=== PATIENT | female | born 1965 | race Caucasian/White ===

== ENCOUNTER 2020-04-22 00:05 | Inpatient (IN) ==
[2020-04-22 01:19] LABS: Urine Appearance Clear; Urine Bilirubin Negative (Negative); Urine Blood Negative (Negative); Urine Color Straw; Urine Glucose Negative (Negative); Urine Ketones Trace (Negative); Urine Nitrite Negative (Negative); Urine Protein Negative (Negative); Urine Specific Gravity 1.009 (1.010-1.030); Urine Urobilinogen Negative (Negative)
[2020-04-22 01:39] LABS: Urine Benzodiazepine Screen None Detected (None Detect); Urine Opiates Screen None Detected (None Detect)
[2020-04-22 02:24] LABS: ABS Basophils 0.1 10^3/ul (0-0.2); ABS Eosinophils 0.2 10^3/ul (0-0.6); ABS Lymphocytes 2.8 10^3/ul (1.0-4.8); ABS Monocytes 0.5 10^3/ul (0-0.8); Eosinophil % 1.9 %; Hematocrit 36 % (35-47); Hemoglobin 12.3 g/dL (12.0-16.0); Lymphocyte % 28.9 %; Mean Corpuscular HGB Conc 34 g/dL (31-36); Mean Corpuscular Hemoglobin 25 pg (27-31); Mean Corpuscular Volume 75 fL (80-97); Mean Platelet Volume 7.3 fL (7.4-10.4); Platelet Count 236 10^3/uL (150-450); Red Blood Count 4.83 10^6 /uL (3.70-4.87); Red Cell Distribution Width 16 % (10-15); White Blood Count 9.7 10^3/uL (3.5-10.8)
[2020-04-22 02:41] LABS: ALT 51 U/L (7-52); AST 34 U/L (13-39); Albumin 4.4 g/dL (3.2-5.2); Albumin/Globulin Ratio 1.9 (1-3); Alkaline Phosphatase 93 U/L (34-104); Anion Gap 9 mmol/L (2-11); BUN/Creatinine Ratio 22.2 (8-20); Blood Urea Nitrogen 16 mg/dL (6-24); CO2 Carbon Dioxide 29 mmol/L (22-32); Calcium 9.2 mg/dL (8.6-10.3); Chloride 100 mmol/L (101-111); EGFR African American 102.5 (>60); EGFR Non-African American 84.7 (>60); Globulin 2.3 g/dL (2-4); Glucose 198 mg/dL (70-100); Potassium 3.7 mmol/L (3.5-5.0); Sodium 138 mmol/L (135-145); Total Protein 6.7 g/dL (6.4-8.9)
[2020-04-22 03:09] LABS: Acetaminophen < 15 mcg/mL; Alcohol, S < 10 mg/dL (<10); Salicylate < 2.50 mg/dL (<30)
[2020-04-22 03:24] LABS: TSH (Thyroid Stimulating Horm) 0.14 mcIU/mL (0.34-5.60)
[2020-04-22] MEDS ORDERED: Al Hydrox/Mg Hydrox/Simet LIQ 30 ML UDC PO PRN (11:12)
[2020-04-22 12:34] LABS: Free T4 1.43 ng/dL (0.61-1.12)
[2020-04-22] MEDS: CMCS:OMEGA-3 FATTY ACID 1000 mg(NF) PO SCH (20:51)
[2020-04-22] MEDS ORDERED: Magnesium CITRATE LIQ 300 ML BTL PO SCH (21:00)
[2020-04-22] MEDS ORDERED: MAGNESIUM CITRATE PO SCH (21:00)
[2020-04-23] MEDS: Multivitamins/Minerals TAB PO SCH (08:20)
[2020-04-23] MEDS: Vitamin THERAPEUTIC TAB PO SCH (08:20)
[2020-04-23] MEDS: CMCS:OMEGA-3 FATTY ACID 1000 mg(NF) PO SCH ×2 (08:21→21:16)
[2020-04-23] MEDS: CRANBERRY SUPPLEMENT PO SCH (08:21)
[2020-04-23] MEDS ORDERED: [UNRECOGNIZED DRUG - OTHER] PO SCH (11:42)
[2020-04-24] MEDS: CRANBERRY SUPPLEMENT PO SCH (08:57)
[2020-04-24] MEDS: Multivitamins/Minerals TAB PO SCH (08:58)
[2020-04-24] MEDS: CMCS:OMEGA-3 FATTY ACID 1000 mg(NF) PO SCH ×2 (09:06→20:34)
[2020-04-24] MEDS: Vitamin THERAPEUTIC TAB PO SCH (09:07)
[2020-04-24] MEDS ORDERED: DULAGLUTIDE 1.5 MG/0.5 ML SUBCUT ONE (14:00)
[2020-04-25] MEDS: Vitamin THERAPEUTIC TAB PO SCH (08:02)
[2020-04-25] MEDS: Multivitamins/Minerals TAB PO SCH (08:02)
[2020-04-25] MEDS: CMCS:OMEGA-3 FATTY ACID 1000 mg(NF) PO SCH ×2 (08:03→20:34)
[2020-04-25] MEDS: CRANBERRY SUPPLEMENT PO SCH (08:04)
[2020-04-26] MEDS: CRANBERRY SUPPLEMENT PO SCH (07:30)
[2020-04-26] MEDS: Vitamin THERAPEUTIC TAB PO SCH (07:31)
[2020-04-26] MEDS: CMCS:OMEGA-3 FATTY ACID 1000 mg(NF) PO SCH ×2 (07:31→20:14)
[2020-04-26] MEDS: Multivitamins/Minerals TAB PO SCH (07:31)
[2020-04-27] MEDS: CRANBERRY SUPPLEMENT PO SCH (08:30)
[2020-04-27] MEDS: CMCS:OMEGA-3 FATTY ACID 1000 mg(NF) PO SCH (08:32)
[2020-04-27] MEDS: Multivitamins/Minerals TAB PO SCH (08:33)
[2020-04-27] MEDS: Vitamin THERAPEUTIC TAB PO SCH (08:34)
[2020-04-27 10:10] VITALS: BP 123/65
== END 2020-04-27 11:51 | disposition home or self-care (01) | DRG 754 ==
LOC: ED 00:05 → BSU 10:21
PROVIDERS: ADMIT Psychiatry & Neurology Psychiatry; ATTEND Psychiatry & Neurology Psychiatry

== ENCOUNTER 2020-10-14 15:16 | Inpatient (IN) ==
[2020-10-14 16:26] LABS: ABS Basophils 0.1 10^3/ul (0-0.2); ABS Eosinophils 0.1 10^3/ul (0-0.6); ABS Monocytes 0.4 10^3/ul (0-0.8); ABS Neutrophils 6.1 10^3/ul (1.5-7.7); Eosinophil % 1.7 %; Hematocrit 34 % (35-47); Hemoglobin 11.6 g/dL (12.0-16.0); Lymphocyte % 22.8 %; Mean Corpuscular HGB Conc 35 g/dL (31-36); Mean Corpuscular Hemoglobin 26 pg (27-31); Mean Corpuscular Volume 76 fL (80-97); Mean Platelet Volume 7.2 fL (7.4-10.4); Platelet Count 226 10^3/uL (150-450); Red Blood Count 4.41 10^6 /uL (3.70-4.87); Red Cell Distribution Width 15 % (10-15); White Blood Count 8.7 10^3/uL (3.5-10.8)
[2020-10-14 17:06] LABS: TSH Ultra Thyroid Stim Horm 0.38 mcIU/mL (0.34-5.60)
[2020-10-14 17:09] LABS: Urine Appearance Clear; Urine Bilirubin Negative (Negative); Urine Blood Negative (Negative); Urine Color Yellow; Urine Glucose 1+(50 mg/dL) (Negative); Urine Ketones Negative (Negative); Urine Nitrite Negative (Negative); Urine Protein Negative (Negative); Urine Specific Gravity 1.015 (1.010-1.030); Urine Urobilinogen Negative (Negative)
[2020-10-14 17:17] LABS: ALT 22 U/L (7-52); AST 18 U/L (13-39); Albumin 4.6 g/dL (3.2-5.2); Albumin/Globulin Ratio 2.2 (1-3); Alkaline Phosphatase 85 U/L (34-104); Anion Gap 11 mmol/L (2-11); BUN/Creatinine Ratio 18.8 (8-20); Blood Urea Nitrogen 13 mg/dL (6-24); CO2 Carbon Dioxide 26 mmol/L (22-32); Calcium 9.4 mg/dL (8.6-10.3); Chloride 102 mmol/L (101-111); EGFR African American 107.7 (>60); Globulin 2.1 g/dL (2-4); Glucose 243 mg/dL (70-100); Sodium 139 mmol/L (135-145); Total Protein 6.7 g/dL (6.4-8.9)
[2020-10-14 17:30] LABS: Acetaminophen < 15 mcg/mL; Alcohol, S < 10 mg/dL (<10); Salicylate < 2.50 mg/dL (<30)
[2020-10-14 17:47] LABS: Urine Benzodiazepine Screen None Detected (None Detect); Urine Cannabinoids Screen None Detected (None Detect); Urine Opiates Screen None Detected (None Detect)
[2020-10-14] MEDS ORDERED: Al Hydrox/Mg Hydrox/Simet LIQ 30 ML UDC PO PRN (20:29)
[2020-10-15] MEDS: Vitamin THERAPEUTIC TAB PO SCH (09:04)
[2020-10-15] MEDS ORDERED: OZEMPIC SUBCUT SCH (14:00)
[2020-10-15] MEDS ORDERED: OZEMPIC 2 MG/1.5 ML SUBCUT SCH (14:00)
[2020-10-15] MEDS ORDERED: Dextrose 50% Syringe 50 ml 25 GM/50 ML SYRINGE IV PUSH PRN (16:38)
[2020-10-15] MEDS ORDERED: CMCS - OMEGA-3 FATTY ACID 1000 mg(NF) PO SCH (21:00)
[2020-10-16] MEDS: Aspirin EC 81 mg TAB.EC (enteric coated) PO SCH (08:31)
[2020-10-16] MEDS: Cholecalciferol (VIT D3) 1,000 unit TAB PO SCH (08:32)
[2020-10-16] MEDS: Vitamin THERAPEUTIC TAB PO SCH (08:33)
[2020-10-16] MEDS: CMCS: OMEGA-3 FATTY ACID 1000 mg(NF) PO SCH ×2 (08:33→20:25)
[2020-10-16] MEDS: Insulin GLARGINE 100 un/ml 10 ml VIAL SUBCUT SCH (08:49)
[2020-10-16] MEDS ORDERED: OZEMPIC 2 MG/1.5 ML SUBCUT SCH (09:00)
[2020-10-17 08:07] LABS: HDL Cholesterol 44.2 mg/dL
[2020-10-17] MEDS: Cholecalciferol (VIT D3) 1,000 unit TAB PO SCH (08:51)
[2020-10-17] MEDS: Vitamin THERAPEUTIC TAB PO SCH (08:51)
[2020-10-17] MEDS: Aspirin EC 81 mg TAB.EC (enteric coated) PO SCH (08:51)
[2020-10-17] MEDS: Insulin GLARGINE 100 un/ml 10 ml VIAL SUBCUT SCH (08:52)
[2020-10-17] MEDS: CMCS: OMEGA-3 FATTY ACID 1000 mg(NF) PO SCH ×2 (08:54→20:06)
[2020-10-18] MEDS: Insulin GLARGINE 100 un/ml 10 ml VIAL SUBCUT SCH (08:30)
[2020-10-18] MEDS: Cholecalciferol (VIT D3) 1,000 unit TAB PO SCH (08:32)
[2020-10-18] MEDS: Vitamin THERAPEUTIC TAB PO SCH (08:32)
[2020-10-18] MEDS: Aspirin EC 81 mg TAB.EC (enteric coated) PO SCH (08:33)
[2020-10-18] MEDS: CMCS: OMEGA-3 FATTY ACID 1000 mg(NF) PO SCH ×2 (08:33→19:45)
[2020-10-19] MEDS: Vitamin THERAPEUTIC TAB PO SCH (09:17)
[2020-10-19] MEDS: Aspirin EC 81 mg TAB.EC (enteric coated) PO SCH (09:19)
[2020-10-19] MEDS: Cholecalciferol (VIT D3) 1,000 unit TAB PO SCH (09:19)
[2020-10-19] MEDS: CMCS: OMEGA-3 FATTY ACID 1000 mg(NF) PO SCH ×2 (09:20→19:16)
[2020-10-19] MEDS: Insulin GLARGINE 100 un/ml 10 ml VIAL SUBCUT SCH (09:21)
[2020-10-20 08:20] VITALS: BP 125/67
[2020-10-20] MEDS: Cholecalciferol (VIT D3) 1,000 unit TAB PO SCH (08:21)
[2020-10-20] MEDS: Aspirin EC 81 mg TAB.EC (enteric coated) PO SCH (08:22)
[2020-10-20] MEDS: Vitamin THERAPEUTIC TAB PO SCH (08:22)
[2020-10-20] MEDS: CMCS: OMEGA-3 FATTY ACID 1000 mg(NF) PO SCH (08:22)
[2020-10-20] MEDS: Insulin GLARGINE 100 un/ml 10 ml VIAL SUBCUT SCH (08:28)
== END 2020-10-20 17:46 | disposition home or self-care (01) | DRG 755 ==
LOC: ED 15:16 → BSU 19:17
PROVIDERS: ADMIT Psychiatry & Neurology Psychiatry; ATTEND Psychiatry & Neurology Psychiatry

== ENCOUNTER 2021-01-11 21:22 | Inpatient (IN) ==
[2021-01-11 22:24] LABS: Urine Appearance Clear; Urine Bilirubin Negative (Negative); Urine Blood Negative (Negative); Urine Color Yellow; Urine Glucose 1+(50 mg/dL) (Negative); Urine Ketones Negative (Negative); Urine Nitrite Negative (Negative); Urine Protein Negative (Negative); Urine Specific Gravity 1.013 (1.002-1.030); Urine Urobilinogen Negative (Negative)
[2021-01-11 22:33] LABS: Urine Benzodiazepine Screen None Detected (None Detect); Urine Cannabinoids Screen None Detected (None Detect); Urine Opiates Screen None Detected (None Detect)
[2021-01-11 23:23] LABS: ABS Eosinophils 0.1 10^3/ul (0-0.6); ABS Lymphocytes 2.6 10^3/ul (1.0-4.8); ABS Monocytes 0.4 10^3/ul (0-0.8); ABS Neutrophils 6.3 10^3/ul (1.5-7.7); Eosinophil % 1.3 %; Hematocrit 36 % (35-47); Hemoglobin 11.7 g/dL (12.0-16.0); Lymphocyte % 26.9 %; Mean Corpuscular HGB Conc 33 g/dL (31-36); Mean Corpuscular Hemoglobin 25 pg (27-31); Mean Corpuscular Volume 77 fL (80-97); Mean Platelet Volume 7.1 fL (7.4-10.4); Platelet Count 230 10^3/uL (150-450); Red Blood Count 4.61 10^6 /uL (3.70-4.87); Red Cell Distribution Width 16 % (10-15); White Blood Count 9.5 10^3/uL (3.5-10.8)
[2021-01-11 23:40] LABS: Acetaminophen < 15 mcg/mL; Alcohol, S < 10 mg/dL (<10); Salicylate < 2.50 mg/dL (<30)
[2021-01-11 23:48] LABS: Albumin 4.3 g/dL (3.2-5.2); CO2 Carbon Dioxide 22 mmol/L (22-32); Calcium 9.1 mg/dL (8.6-10.3); Chloride 103 mmol/L (101-111); Sodium 137 mmol/L (135-145)
[2021-01-11 23:54] LABS: ALT 19 U/L (7-52); Albumin/Globulin Ratio 1.8 (1-3); Alkaline Phosphatase 86 U/L (34-104); BUN/Creatinine Ratio 19.5 (8-20); Blood Urea Nitrogen 15 mg/dL (6-24); EGFR African American 94.5 (>60); EGFR Non-African American 78.1 (>60); Globulin 2.4 g/dL (2-4); Glucose 139 mg/dL (70-100); Total Protein 6.7 g/dL (6.4-8.9)
[2021-01-11 23:55] LABS: TSH Ultra Thyroid Stim Horm 0.88 mcIU/mL (0.34-5.60)
[2021-01-11 23:56] LABS: AST 24 U/L (13-39); Anion Gap 12 mmol/L (2-11)
[2021-01-12] MEDS ORDERED: Al Hydrox/Mg Hydrox/Simet LIQ 30 ML UDC PO PRN (12:08)
[2021-01-13] MEDS: Conjugated Estrogens VAG CM 42.5 gm TUBE VAGINAL SCH (07:32)
[2021-01-13 08:50] LABS: HDL Cholesterol 48.2 mg/dL
[2021-01-13] MEDS: Cholecalciferol (VIT D3) 1,000 unit TAB PO SCH (08:50)
[2021-01-13] MEDS: Aspirin EC 81 mg TAB.EC (enteric coated) PO SCH (08:52)
[2021-01-13] MEDS: Insulin GLARGINE 100 un/ml 10 ml VIAL SUBCUT SCH (08:54)
[2021-01-14] MEDS: Aspirin EC 81 mg TAB.EC (enteric coated) PO SCH (08:07)
[2021-01-14] MEDS: Cholecalciferol (VIT D3) 1,000 unit TAB PO SCH (08:07)
[2021-01-14] MEDS: Insulin GLARGINE 100 un/ml 10 ml VIAL SUBCUT SCH (10:08)
[2021-01-14] MEDS ORDERED: Dextrose 50% Syringe 50 ml 25 GM/50 ML SYRINGE IV PUSH PRN (14:48)
[2021-01-14] MEDS: Multivitamins/Minerals TAB PO SCH (17:07)
[2021-01-14] MEDS: CMCS - OMEGA-3 FATTY ACID 1000 mg(NF) PO SCH (19:57)
[2021-01-15] MEDS: Aspirin EC 81 mg TAB.EC (enteric coated) PO SCH (08:44)
[2021-01-15] MEDS: Cholecalciferol (VIT D3) 1,000 unit TAB PO SCH (08:45)
[2021-01-15] MEDS: Conjugated Estrogens VAG CM 42.5 gm TUBE VAGINAL SCH (08:45)
[2021-01-15] MEDS: Insulin GLARGINE 100 un/ml 10 ml VIAL SUBCUT SCH (08:45)
[2021-01-15] MEDS: CMCS - OMEGA-3 FATTY ACID 1000 mg(NF) PO SCH ×2 (08:47→20:13)
[2021-01-15] MEDS: Multivitamins/Minerals TAB PO SCH (08:47)
[2021-01-15] MEDS: CMC:Pravastatin 20 mg TAB (NF) PO SCH (15:07)
[2021-01-16] MEDS: Multivitamins/Minerals TAB PO SCH (08:50)
[2021-01-16] MEDS: Cholecalciferol (VIT D3) 1,000 unit TAB PO SCH (08:50)
[2021-01-16] MEDS: CMCS - OMEGA-3 FATTY ACID 1000 mg(NF) PO SCH ×2 (08:51→19:50)
[2021-01-16] MEDS: CMC:Pravastatin 20 mg TAB (NF) PO SCH (08:51)
[2021-01-16] MEDS: Aspirin EC 81 mg TAB.EC (enteric coated) PO SCH (08:52)
[2021-01-16] MEDS: Insulin GLARGINE 100 un/ml 10 ml VIAL SUBCUT SCH (08:52)
[2021-01-17] MEDS: Aspirin EC 81 mg TAB.EC (enteric coated) PO SCH (07:45)
[2021-01-17] MEDS: Cholecalciferol (VIT D3) 1,000 unit TAB PO SCH (07:45)
[2021-01-17] MEDS: Multivitamins/Minerals TAB PO SCH (07:45)
[2021-01-17] MEDS: CMCS - OMEGA-3 FATTY ACID 1000 mg(NF) PO SCH ×2 (07:46→20:15)
[2021-01-17] MEDS: CMC:Pravastatin 20 mg TAB (NF) PO SCH (09:15)
[2021-01-17] MEDS: Insulin GLARGINE 100 un/ml 10 ml VIAL SUBCUT SCH (09:15)
[2021-01-18] MEDS: Cholecalciferol (VIT D3) 1,000 unit TAB PO SCH (09:03)
[2021-01-18] MEDS: Conjugated Estrogens VAG CM 42.5 gm TUBE VAGINAL SCH (09:04)
[2021-01-18] MEDS: Multivitamins/Minerals TAB PO SCH (09:04)
[2021-01-18] MEDS: CMC:Pravastatin 20 mg TAB (NF) PO SCH (09:05)
[2021-01-18] MEDS: CMCS - OMEGA-3 FATTY ACID 1000 mg(NF) PO SCH ×2 (09:05→20:29)
[2021-01-18] MEDS: Aspirin EC 81 mg TAB.EC (enteric coated) PO SCH (09:06)
[2021-01-18] MEDS: Insulin GLARGINE 100 un/ml 10 ml VIAL SUBCUT SCH (09:09)
[2021-01-19] MEDS: Cholecalciferol (VIT D3) 1,000 unit TAB PO SCH (08:52)
[2021-01-19] MEDS: CMC:Pravastatin 20 mg TAB (NF) PO SCH (08:52)
[2021-01-19] MEDS: Aspirin EC 81 mg TAB.EC (enteric coated) PO SCH (08:53)
[2021-01-19] MEDS: CMCS - OMEGA-3 FATTY ACID 1000 mg(NF) PO SCH (08:55)
[2021-01-19] MEDS: Multivitamins/Minerals TAB PO SCH (08:55)
[2021-01-19] MEDS: Insulin GLARGINE 100 un/ml 10 ml VIAL SUBCUT SCH (08:56)
[2021-01-19 09:54] VITALS: BP 126/65
== END 2021-01-19 12:00 | disposition home or self-care (01) | DRG 755 ==
LOC: ED 21:22 → BSU 01-12 12:08
PROVIDERS: ADMIT Psychiatry & Neurology Psychiatry; ATTEND Psychiatry & Neurology Psychiatry